=== PATIENT | female | born 1990 | race Asian ===

== ENCOUNTER 2018-05-27 20:40 | Emergency (ER) | payer BC ==
[2018-05-27] MEDS ORDERED: OXYCODONE-ACETAMINOPHEN 5-325 MG TABLET PO ONE (20:57)
--- NOTE | 2018-05-27 20:57 | ER Document Report ---
ED Medical Screen (RME) - General Chief Complaint: Abdominal Pain Stated Complaint: BACK PAIN Time Seen by Provider: 05/27/18 20:56 Notes: 28-year-old female to the emergency department complaining of lower pelvic pain mostly on the left side. States that she was at [facility] yesterday and diagnosed with a hemorrhagic ovarian cyst. Received a shot of Toradol but states that nothing they have given her has helped her pain. Came here to get something "stronger for the pain". States that she has had hemorrhagic ovarian cyst in the past which required surgery. Patient was told that the cyst was 2 cm. Was told to "come back to the ER if it ruptures". Patient is not sure how she is supposed to know when it ruptures? I have greeted and performed a rapid initial assessment of this patient. A comprehensive ED assessment and evaluation of the patient, analysis of test results and completion of the medical decision making process will be conducted by additional ED providers. Physical Exam - Vital signs Vitals: Temp Pulse Resp BP Pulse Ox 98.4 F 87 18 121/81 99 05/27/18 20:45 05/27/18 20:45 05/27/18 20:45 05/27/18 20:45 05/27/18 20:45 Course - Vital Signs Vital signs: Temp Pulse Resp BP Pulse Ox 98.4 F 87 18 121/81 99 05/27/18 20:45 05/27/18 20:45 05/27/18 20:45 05/27/18 20:45 05/27/18 20:45
[2018-05-27] MEDS ORDERED: KETOROLAC TROMETHAMINE INJ/PF 30 MG/1 ML SDV IV ONE (21:31)
[2018-05-27] MEDS ORDERED: NORMAL SALINE 1000 ML 1,000 ML IV ONE (21:31)
[2018-05-27] MEDS ORDERED: MORPHINE SULFATE 10 MG/ML INJ IV ONE (21:31)
[2018-05-27] MEDS ORDERED: ONDANSETRON HCL INJ/PF 4 MG/2 ML SDV IV ONE (21:31)
[2018-05-27 21:32] LABS: APPEARANCE,URINE CLEAR; BILIRUBIN,URINE NEGATIVE (NEGATIVE); COLOR,URINE YELLOW; GLUCOSE, URINE NEGATIVE (NEGATIVE); KETONES,URINE NEGATIVE (NEGATIVE); LEUKOCYTE ESTERASE,URINE NEGATIVE (NEGATIVE); NITRITE,URINE NEGATIVE (NEGATIVE); PROTEIN,URINE NEGATIVE (NEGATIVE); URINE SPECIFIC GRAVITY 1.012; UROBILINOGEN,URINE NEGATIVE mg/dL (<2.0)
--- NOTE | 2018-05-27 21:34 | ER Document Report ---
ED GI/ - General Chief Complaint: Abdominal Pain Stated Complaint: BACK PAIN Time Seen by Provider: 05/27/18 20:56 Notes: Patient is a 28-year-old female comes emergency department for chief complaint of abdominal pain, nausea, and flank pain. She states she was seen at [place] emergency department yesterday and had an ultrasound transvaginally which showed a 2 cm ovarian cyst, she does have some vaginal bleeding, she states she was told that she has a hemorrhagic cyst and she was given a shot of Toradol but her pain is persistent. She states for the past week she has barely been able to eat anything because eating makes her very nauseated, she states she is losing weight because of this. She denies fever or chills. She is currently on her menstrual cycle, denies vaginal discharge, denies dysuria. She has had an appendectomy, she has had an ovarian cyst removed in the past, she has not had any ovaries removed or hysterectomy, she denies any daily medications other than citalopram. Drinks alcohol socially, denies smoking or recreational drugs. - Related Data Allergies/Adverse Reactions: Sulfa (Sulfonamide Antibiotics) Allergy (Verified 05/27/18 20:57) Past Medical History - General Information source: Patient - Social History Smoking Status: Never Smoker Frequency of alcohol use: None Drug Abuse: None Lives with: Family Family History: Reviewed & Not Pertinent Patient has suicidal ideation: No Patient has homicidal ideation: No Renal/ Medical History: Reports: Hx Ovarian Cysts. Denies: Hx Peritoneal Dialysis Psychiatric Medical History: Reports: Hx Depression Surgical Hx: Negative - Immunizations Immunizations up to date: Yes Hx Diphtheria, Pertussis, Tetanus Vaccination: Yes Review of Systems - Review of Systems Constitutional: No symptoms reported EENT: No symptoms reported Cardiovascular: No symptoms reported Respiratory: No symptoms reported Gastrointestinal: See HPI Genitourinary: See HPI Female Genitourinary: See HPI Musculoskeletal: No symptoms reported Skin: No symptoms reported Hematologic/Lymphatic: No symptoms reported Neurological/Psychological: No symptoms reported Physical Exam - Vital signs Vitals: Temp Pulse Resp BP Pulse Ox 98.4 F 87 18 121/81 99 05/27/18 20:45 05/27/18 20:45 05/27/18 20:45 05/27/18 20:45 05/27/18 20:45 - Notes Notes: GENERAL: Alert, interacts well. No acute distress. HEAD: Normocephalic, atraumatic. EYES: Pupils equal, round, and reactive to light. Extraocular movements intact. ENT: Oral mucosa moist, tongue midline. NECK: Full range of motion. Supple. Trachea midline. LUNGS: Clear to auscultation bilaterally, no wheezes, rales, or rhonchi. No respiratory distress. HEART: Regular rate and rhythm. No murmur ABDOMEN: Generalized mild upper abdominal tenderness and lower abdominal tenderness without any particular guarding, no rebound tenderness, no rigidity EXTREMITIES: Moves all 4 extremities spontaneously. No edema, normal radial and dorsalis pedis pulses bilaterally. No cyanosis. BACK: no cervical, thoracic, lumbar midline tenderness. No saddle anesthesia, normal distal neurovascular exam. NEUROLOGICAL: Alert and oriented x3. Normal speech. [cranial nerves II through XII grossly intact]. PSYCH: Normal affect, normal mood. SKIN: Warm, dry, normal turgor. No rashes or lesions noted. Course - Re-evaluation Re-evalutation: Patient asymptomatic after medications and IV fluids. Alert and well- appearing. Tolerates p.o. without any difficulty. She has some upper abdominal tenderness and some lower abdominal tenderness without any areas of particular guarding. No CVA tenderness. CBC, chemistry, lipase, urinalysis unremarkable. Ultrasound today with no acute findings. She has already had an ultrasound yesterday, tells me she had a 2 cm hemorrhagic cyst. Patient was not provided with pain medications for this previously, she was provided with this to go home tonight, discussed follow-up, return precautions, patient states satisfaction and agreement. - Vital Signs Vital signs: Temp Pulse Resp BP Pulse Ox 98.2 F 85 16 130/76 H 100 05/28/18 00:00 05/28/18 00:00 05/28/18 00:00 05/28/18 00:00 05/28/18 00:00 - Laboratory Result Diagrams: 05/27/18 22:10 05/27/18 22:10 Laboratory results interpreted by me: 05/27/18 21:05 Urine Blood SMALL H Urine Ascorbic Acid 40 H Discharge - Discharge Clinical Impression: Abdominal pain Qualifiers: Abdominal location: generalized Qualified Code(s): R10.84 - Generalized abdominal pain Condition: Stable Disposition: HOME, SELF-CARE Additional Instructions: In regards to the upper abdominal pain and nausea with eating, your ultrasound is normal, your lab work does not show any concerning a normality, I suspect inflammation of the upper gastrointestinal tract (gastritis). Take the Nexium as prescribed for this. You can take [id number] Pepcid, Rolaids, etc. for this as well. Take Zofran for nausea. Avoid NSAIDs, caffeine, spicy foods , alcohol, smoking. Follow-up with primary care for additional evaluation of this. In regards to the previously diagnosed hemorrhagic cyst, take pain medication as prescribed if needed, follow-up with the [facility] referral. Return if you worsen including vomiting, severe pain, fever 100.4 greater, black stools, passing out, or any other concerning symptoms. Prescriptions: Morphine Sulfate [Morphine Ir 15 Mg Tablet] 15 mg PO Q4HP PRN #15 tablet PRN Reason: Esomeprazole Mag Trihydrate [Nexium] 40 mg PO DAILY #30 capsule. Ondansetron [Zofran Odt 4 mg Tablet] 1 - 2 tab PO Q4H PRN #15 tab.rapdis PRN Reason: For Nausea/Vomiting Referrals: [facility] [Provider Group] - Follow up as needed
--- NOTE | 2018-05-27 22:49 | RADIOLOGY REPORT (SQ) ---
EXAM DESCRIPTION: US ABDOMEN LIMITED COMPLETED DATE/TME: 05/27/2018 21:32 CLINICAL HISTORY: 28 years Female, RUQ and epigastric pain, nausea Comparison: None. LIMITATIONS: None. FINDINGS: Gallbladder, negative sonographic Goncalves's test, liver, a 0.2-cm diameter common bile duct, no intrahepatic ductal dilation, 11-cm right kidney, pancreas, visualized vasculature/abdominal aorta, and no significant ascites appear otherwise unremarkable. IMPRESSION: Normal RUQ-Abdominal Sonogram.
[2018-05-27 23:08] LABS: ABSOLUTE EOSINOPHILS # (AUTO) 0.2 10^3/uL (0.0-0.6); ABSOLUTE MONOCYTES (AUTO) 0.3 10^3/uL (0.1-1.4); ABSOLUTE NEUT (AUTO) 2.7 10^3/uL (1.7-8.2); BASOPHILS % (AUTO) 0.8 % (0-2); EOSINOPHILS % (AUTO) 3.1 % (0-6); HEMATOCRIT 38.3 % (36.0-47.0); HEMOGLOBIN 12.7 g/dL (12.0-15.5); LYMPHOCYTES % (AUTO) 38.7 % (13-45); MEAN CORPUSCULAR HEMOGLOBIN 27.3 pg (27.0-33.4); MEAN CORPUSCULAR HGB CONC 33.2 g/dL (32.0-36.0); MEAN CORPUSCULAR VOLUME 82 fl (80-97); MONOCYTES % (AUTO) 5.3 % (3-13); PLATELET COUNT 238 10^3/uL (150-450); RED BLOOD COUNT 4.66 10^6/uL (3.72-5.28); RED CELL DISTRIBUTION WIDTH 11.8 % (11.5-14.0); SEGMENTED NEUTROPHILS % (AUTO) 52.1 % (42-78); TOTAL CELLS COUNTED % (AUTO) 100 %; WHITE BLOOD COUNT 5.2 10^3/uL (4.0-10.5)
[2018-05-27 23:16] LABS: ALANINE AMINOTRANSFERASE 26 U/L (9-52); ALBUMIN 3.9 g/dL (3.5-5.0); ALKALINE PHOSPHATASE 73 U/L (38-126); ANION GAP 12 (5-19); ASPARTATE AMINO TRANSFERASE 22 U/L (14-36); BILIRUBIN,DIRECT 0.1 mg/dL (0.0-0.4); BILIRUBIN,TOTAL 0.3 mg/dL (0.2-1.3); BLOOD UREA NITROGEN 11 mg/dL (7-20); CARBON DIOXIDE 25 mmol/L (22-30); CHLORIDE 105 mmol/L (98-107); GLUCOSE 81 mg/dL (75-110); LIPASE 86.4 U/L (23-300); POTASSIUM 4.4 mmol/L (3.6-5.0); SODIUM 142.3 mmol/L (137-145); TOTAL PROTEIN 6.8 g/dL (6.3-8.2)
[2018-05-27] MEDS ORDERED: ONDANSETRON ODT 4 MG TAB (6 TAB/ER DISP) PO PRN (23:40)
[2018-05-27] MEDS ORDERED: HYDROCODONE/ACETAMINOPHEN 5-325 MG (6 TAB/ER DISP) PO PRN (23:40)
[2018-05-28 00:20] VITALS: BP 130/76
== END 2018-05-27 23:56 | disposition home or self-care (01) ==
LOC: ER 20:40
DX: R10.84 Generalized abdominal pain (principal); N83.209 Unspecified ovarian cyst, unspecified side; R11.0 Nausea; Z90.49 Acquired absence of other specified parts of digestive tract; Z88.2 Allergy status to sulfonamides
CPT/HCPCS: 99284; 96361; 96374; 96375; 36415; 83690; 85025; 81025; 80053; 81001; 76705; J1885; J2270; J2405; J7030

== ENCOUNTER 2019-04-22 17:02 | Emergency (ER) | payer OTHER, BC ==
[2019-04-22] MEDS ORDERED: ONDANSETRON 4 MG TAB.RAPDIS PO ONE (17:15)
--- NOTE | 2019-04-22 17:16 | ER Document Report ---
ED Medical Screen (RME) - General Chief Complaint: Back Pain Stated Complaint: BACK PAIN Time Seen by Provider: 04/22/19 17:10 Primary Care Provider: ESPINOZA FAROOQ NP [Primary Care Provider] - Follow up as needed Mode of Arrival: Ambulatory Information source: Patient Notes: Patient presents emergency department with complaints of bilateral flank pain abdominal pain nausea. Patient reports symptoms for the past day and half. Reports her stomach felt very bloated so she took some Gas-X and it did not really help. Patient does have history of recent kidney infection she finished her antibiotics. She also has a history of pancreatitis. She denies pain with void denies vaginal discharge. I have greeted and performed a rapid initial assessment of this patient. A comprehensive ED assessment and evaluation of the patient, analysis of test results and completion of the medical decision making process will be conducted by additional ED providers. Dictation of this chart was performed using voice recognition software; therefore, there may be some unintended grammatical errors. TRAVEL OUTSIDE OF THE [place] IN LAST 30 DAYS: No - Related Data Allergies/Adverse Reactions: Sulfa (Sulfonamide Antibiotics) Allergy (Verified 05/27/18 20:57) Past Medical History Renal/ Medical History: Reports: Hx Ovarian Cysts. Denies: Hx Peritoneal Dialysis Psychiatric Medical History: Reports: Hx Depression - Immunizations Immunizations up to date: Yes Hx Diphtheria, Pertussis, Tetanus Vaccination: Yes Physical Exam - Vital signs Vitals: Temp Pulse Resp BP Pulse Ox 98.4 F 115 H 18 102/81 96 04/22/19 17:07 04/22/19 17:07 04/22/19 17:07 04/22/19 17:07 04/22/19 17:07 Course - Vital Signs Vital signs: Temp Pulse Resp BP Pulse Ox 98.4 F 115 H 18 102/81 96 04/22/19 17:07 04/22/19 17:07 04/22/19 17:07 04/22/19 17:07 04/22/19 17:07 Doctor's Discharge - Discharge Referrals: ESPINOZA FAROOQ NP [Primary Care Provider] - Follow up as needed
[2019-04-22 17:47] LABS: ABSOLUTE LYMPHOCYTES (AUTO) 0.7 10^3/uL (0.5-4.7); ABSOLUTE MONOCYTES (AUTO) 0.3 10^3/uL (0.1-1.4); ABSOLUTE NEUT (AUTO) 4.5 10^3/uL (1.7-8.2); BASOPHILS % (AUTO) 0.4 % (0-2); EOSINOPHILS % (AUTO) 0.4 % (0-6); HEMATOCRIT 41.8 % (36.0-47.0); HEMOGLOBIN 13.8 g/dL (12.0-15.5); LYMPHOCYTES % (AUTO) 13.2 % (13-45); MEAN CORPUSCULAR HEMOGLOBIN 26.9 pg (27.0-33.4); MEAN CORPUSCULAR HGB CONC 33.1 g/dL (32.0-36.0); MEAN CORPUSCULAR VOLUME 81 fl (80-97); MONOCYTES % (AUTO) 5.6 % (3-13); PLATELET COUNT 250 10^3/uL (150-450); RED BLOOD COUNT 5.15 10^6/uL (3.72-5.28); RED CELL DISTRIBUTION WIDTH 12.5 % (11.5-14.0); SEGMENTED NEUTROPHILS % (AUTO) 80.4 % (42-78); TOTAL CELLS COUNTED % (AUTO) 100 %; WHITE BLOOD COUNT 5.6 10^3/uL (4.0-10.5)
[2019-04-22 17:48] LABS: APPEARANCE,URINE CLEAR; BILIRUBIN,URINE NEGATIVE (NEGATIVE); COLOR,URINE YELLOW; GLUCOSE, URINE NEGATIVE (NEGATIVE); KETONES,URINE NEGATIVE (NEGATIVE); LEUKOCYTE ESTERASE,URINE NEGATIVE (NEGATIVE); NITRITE,URINE NEGATIVE (NEGATIVE); PROTEIN,URINE NEGATIVE (NEGATIVE); URINE SPECIFIC GRAVITY 1.027; UROBILINOGEN,URINE NEGATIVE mg/dL (<2.0)
[2019-04-22 18:06] LABS: ALANINE AMINOTRANSFERASE 28 U/L (9-52); ALBUMIN 4.6 g/dL (3.5-5.0); ALKALINE PHOSPHATASE 83 U/L (38-126); AMYLASE 120 U/L (30-110); ANION GAP 9 (5-19); ASPARTATE AMINO TRANSFERASE 28 U/L (14-36); BILIRUBIN,DIRECT 0.2 mg/dL (0.0-0.4); BILIRUBIN,TOTAL 0.4 mg/dL (0.2-1.3); BLOOD UREA NITROGEN 10 mg/dL (7-20); CALCIUM 9.2 mg/dL (8.4-10.2); CARBON DIOXIDE 26 mmol/L (22-30); CHLORIDE 103 mmol/L (98-107); GLUCOSE 105 mg/dL (75-110); LIPASE 65.8 U/L (23-300); POTASSIUM 3.6 mmol/L (3.6-5.0); SODIUM 137.6 mmol/L (137-145); TOTAL PROTEIN 7.9 g/dL (6.3-8.2)
[2019-04-22] MEDS ORDERED: RINGERS SOLUTION,LACTATED 1,000 ML IV ONE (19:14)
[2019-04-22] MEDS ORDERED: KETOROLAC TROMETHAMINE INJ/PF 30 MG/1 ML SDV IV ONE (19:14)
[2019-04-22] MEDS ORDERED: DICYCLOMINE HCL INJ 20 MG/2 ML AMPULE IM ONE (19:15)
--- NOTE | 2019-04-22 19:20 | ER Document Report ---
ED General - General Chief Complaint: Back Pain Stated Complaint: BACK PAIN Time Seen by Provider: 04/22/19 17:10 Primary Care Provider: ESPINOZA FAROOQ NP [NO LOCAL MD] - Follow up as needed Mode of Arrival: Ambulatory Notes: Patient is a 29-year-old female without chronic medical problems beyond depression, anxiety, PTSD, past surgical history of an appendectomy and a hematoma removal after ruptured ovarian cyst who presents with concerns of 36 hours of fatigue, diffuse low back pain as well as generalized abdominal cramping. States that her symptoms started gradually, have been relatively unchanged since onset. No exacerbating or alleviating factors. Is not trying to improve her symptoms. Denies a history of similar symptoms in the past. Pain to her back and abdomen is described as a cramping, mild, constant discomfort. She has not seen her primary care physician regarding today's concerns. Denies fever, diarrhea, states that she is been nauseated and has "vomited up in my mouth". Denies vaginal bleeding, vaginal discharge or dysuria. Believes she may have overexerted herself yesterday. TRAVEL OUTSIDE OF THE [place] IN LAST 30 DAYS: No - Related Data Allergies/Adverse Reactions: Sulfa (Sulfonamide Antibiotics) Allergy (Verified 05/27/18 20:57) Past Medical History - General Information source: Patient - Social History Smoking Status: Never Smoker Frequency of alcohol use: None Drug Abuse: None Lives with: Spouse/Significant other Family History: Reviewed & Not Pertinent Patient has suicidal ideation: No Patient has homicidal ideation: No Renal/ Medical History: Reports: Hx Ovarian Cysts. Denies: Hx Peritoneal Dialysis Psychiatric Medical History: Reports: Hx Depression - Immunizations Immunizations up to date: Yes Hx Diphtheria, Pertussis, Tetanus Vaccination: Yes Review of Systems - Review of Systems Notes: Constitutional: Negative for fever. Positive for fatigue HENT: Negative for sore throat. Eyes: Negative for visual changes. Cardiovascular: Negative for chest pain. Respiratory: Negative for shortness of breath. Gastrointestinal: Positive for abdominal cramping Genitourinary: Negative for dysuria. Musculoskeletal: Positive for low back pain Skin: Negative for rash. Neurological: Negative for headaches, weakness or numbness. 10 point ROS negative except as marked above and in HPI. Physical Exam - Vital signs Vitals: Temp Pulse Resp BP Pulse Ox 98.4 F 115 H 18 102/81 96 06/30/19 17:07 04/22/19 17:07 04/22/19 17:07 04/22/19 17:07 04/22/19 17:07 Interpretation: Tachycardic - Resolved at the time of my assessment, heart rate 72 on manual count at bedside Notes: PHYSICAL EXAMINATION: GENERAL: Well-appearing, well-nourished and in no acute distress. HEAD: Atraumatic, normocephalic. EYES: Pupils equal round and reactive to light, extraocular movements intact, sclera anicteric, conjunctiva are normal. ENT: nares patent, oropharynx clear without exudates. Moderately dry mucous membranes. NECK: Normal range of motion, supple without lymphadenopathy LUNGS: Breath sounds clear to auscultation bilaterally and equal. No wheezes rales or rhonchi. HEART: Regular rate and rhythm without murmurs ABDOMEN: Soft, nontender, normoactive bowel sounds. No guarding, no rebound. No masses appreciated. EXTREMITIES: Normal range of motion, no pitting or edema. No cyanosis. Back: No midline spinal tenderness, step-offs or deformities. NEUROLOGICAL: 5 out of 5 strength both distally and proximally bilateral lower extremities. 2+ patellar reflexes bilaterally. No clonus. Sensation grossly intact in the bilateral lower extremities. Patient is able to ambulate without difficulty. PSYCH: Normal mood, normal affect. SKIN: Warm, Dry, normal turgor, no rashes or lesions noted. Course - Re-evaluation Re-evalutation: 04/22/19 19:19 Patient presents with multiple complaints that did not appear to be concerning for any acute life-threatening pathology. Vitals are within normal limits at the time of my assessment. Physical examination is unremarkable she has no focal abdominal tenderness and no red flag signs in regards to low back pain. Patient has tolerated oral intake without difficulty. Patient was not noted to be in distress at any point during their ER visit. Very low clinical suspicion for acute surgical or life-threatening pathology at this time based on reassuring evaluation. Labs broadly unremarkable. Patient has had clinical improvement after receiving IV fluids, antiemetics, analgesia. Have advised that there is diagnostic uncertainty regarding the cause of her presentation today and have thoroughly emphasized the need to have a low threshold to return to the emergency department due to the degree of diagnostic uncertainty. Do not believe CT imaging the abdomen pelvis to be appropriate this point given absence of any focal abdominal tenderness on exam. Will discharge with return precautions and follow-up recommendations. Verbal discharge instructions given a the bedside and opportunity for questions given. Medication warnings reviewed. Patient is in agreement with this plan and has verbalized understanding of return precautions and the need for primary care follow-up in the next 24-72 hours. - Vital Signs Vital signs: Temp Pulse Resp BP Pulse Ox 98.4 F 115 H 18 102/81 96 04/22/19 17:07 04/22/19 17:07 04/22/19 17:07 04/22/19 17:07 04/22/19 17:07 - Laboratory Result Diagrams: 04/22/19 17:12 04/22/19 17:12 Laboratory results interpreted by me: 04/22/19 04/22/19 04/22/19 17:12 17:12 17:12 MCH 26.9 L Seg Neutrophils % 80.4 H Amylase 120 H Urine Ascorbic Acid 40 H Discharge - Discharge Clinical Impression: Abdominal cramping Low back pain Qualifiers: Chronicity: acute Back pain laterality: bilateral Sciatica presence: without sciatica Qualified Code(s): M54.5 - Low back pain Fatigue Qualifiers: Fatigue type: unspecified Qualified Code(s): R53.83 - Other fatigue Disposition: HOME, SELF-CARE Additional Instructions: The exact cause your symptoms is uncertain but does not appear to be from a life-threatening cause today based on your reassuring evaluation including labs, exam and vital signs. However as we discussed given the uncertainty of what is causing your symptoms you need to have a very low threshold to return to the emergency department for any new or worsening symptoms. Specifically if you develop worsening abdominal pain, difficulty walking, persistent vomiting, fever greater than 100.4 F, pass out, or have any other worsening symptoms need to return immediately. Please follow-up with your primary care physician within the next 24 to 48 hours. Referrals: ESPINOZA FAROOQ NP [NO LOCAL MD] - Follow up in 3-5 days
[2019-04-22 20:41] VITALS: BP 113/74
== END 2019-04-22 20:41 | disposition home or self-care (01) ==
LOC: ER 17:02
DX: M54.5 Low back pain (principal); R10.84 Generalized abdominal pain; R53.83 Other fatigue; R11.2 Nausea with vomiting, unspecified; Z90.49 Acquired absence of other specified parts of digestive tract; Z87.42 Personal history of other diseases of the female genital tract; Z88.2 Allergy status to sulfonamides
CPT/HCPCS: 99283; 96361; 96374; 96375; 36415; 82150; 83690; 85025; 80053; 81001; J0500; S0119; J1885; J7120

== ENCOUNTER 2020-11-09 07:20 | Emergency (ER) | payer OTHER, BC ==
[2020-11-09 08:14] LABS: ABSOLUTE LYMPHOCYTES (AUTO) 1.6 10^3/uL (0.5-4.7); ABSOLUTE MONOCYTES (AUTO) 0.4 10^3/uL (0.1-1.4); BASOPHILS % (AUTO) 0.4 % (0-2); EOSINOPHILS % (AUTO) 0.1 % (0-6); HEMATOCRIT 39.8 % (36.0-47.0); HEMOGLOBIN 13.4 g/dL (12.0-15.5); LYMPHOCYTES % (AUTO) 15.6 % (13-45); MEAN CORPUSCULAR HEMOGLOBIN 27.5 pg (27.0-33.4); MEAN CORPUSCULAR HGB CONC 33.7 g/dL (32.0-36.0); MEAN CORPUSCULAR VOLUME 82 fl (80-97); MONOCYTES % (AUTO) 3.5 % (3-13); PLATELET COUNT 274 10^3/uL (150-450); RED BLOOD COUNT 4.87 10^6/uL (3.72-5.28); RED CELL DISTRIBUTION WIDTH 12.4 % (11.5-14.0); SEGMENTED NEUTROPHILS % (AUTO) 80.4 % (42-78); TOTAL CELLS COUNTED % (AUTO) 100 %
[2020-11-09 08:25] LABS: ALBUMIN 4.7 g/dL (3.5-5.0); ALKALINE PHOSPHATASE 85 U/L (38-126); ANION GAP 8 (5-19); ASPARTATE AMINO TRANSFERASE 39 U/L (14-36); BILIRUBIN,DIRECT 0.1 mg/dL (0.0-0.4); BILIRUBIN,TOTAL 0.5 mg/dL (0.2-1.3); BLOOD UREA NITROGEN 14 mg/dL (7-20); CALCIUM 9.5 mg/dL (8.4-10.2); CARBON DIOXIDE 26 mmol/L (22-30); CHLORIDE 103 mmol/L (98-107); GLUCOSE 112 mg/dL (75-110); POTASSIUM 3.9 mmol/L (3.6-5.0); TOTAL PROTEIN 8.3 g/dL (6.3-8.2)
[2020-11-09] MEDS ORDERED: TAMSULOSIN HCL 0.4 MG CAP.SR.24H PO ONE (08:52)
[2020-11-09] MEDS ORDERED: MORPHINE SULFATE 10 MG/ML INJ IV PRN (08:52)
[2020-11-09] MEDS ORDERED: DICYCLOMINE HCL INJ 20 MG/2 ML AMPULE IM ONE (08:54)
[2020-11-09] MEDS ORDERED: NORMAL SALINE 1000 ML 1,000 ML IV ONE (08:54)
[2020-11-09] MEDS ORDERED: ONDANSETRON HCL INJ/PF 4 MG/2 ML SDV IV ONE (08:55)
--- NOTE | 2020-11-09 09:11 | ER Document Report ---
ED General - General Stated Complaint: DIARRHEA, VOMITING Time Seen by Provider: 11/09/20 08:17 Primary Care Provider: LALA,WENDY [Primary Care Provider] - Follow up as needed TRAVEL OUTSIDE OF THE [place] IN LAST 30 DAYS: No - HPI Notes: 30-year-old female presents to ED for evaluation of diffuse abdominal pain with nausea, vomiting, and diarrhea. Notes that she started with constipation and has progressed to loose stools with blood. Notes that she has no focal area of pain but instead has pain throughout. Denies urinary complaints but does endorse flank pain. Patient states that she did start a probiotic yesterday. Notes that she has not taken any medications to alleviate her symptoms. Denies chest pain, palpitations, SOB. Patient denies recent sick contacts. - Related Data Allergies/Adverse Reactions: Sulfa (Sulfonamide Antibiotics) Allergy (Verified 05/27/18 20:57) Past Medical History - Social History Smoking Status: Never Smoker Family History: Reviewed & Not Pertinent - Medical History Medical History: Negative Renal/ Medical History: Reports: Hx Ovarian Cysts. Denies: Hx Peritoneal Dialysis Psychiatric Medical History: Reports: Hx Depression - Immunizations Immunizations up to date: Yes Hx Diphtheria, Pertussis, Tetanus Vaccination: Yes Review of Systems - Review of Systems Notes: Constitutional: Negative for fever. HENT: Negative for sore throat. Eyes: Negative for visual changes. Cardiovascular: Negative for chest pain. Respiratory: Negative for shortness of breath. Gastrointestinal: + for abdominal pain, +vomiting + diarrhea. Genitourinary: Negative for dysuria. Musculoskeletal: + for back pain. Skin: Negative for rash. Neurological: Negative for headaches, weakness or numbness. 10 point ROS negative except as marked above and in HPI. Physical Exam - Vital signs Vitals: Temp Pulse Resp BP Pulse Ox 98.3 F 100 16 114/83 96 11/09/20 07:29 11/09/20 07:29 11/09/20 07:29 11/09/20 07:29 11/09/20 07:29 General: No acute distress. Alert and oriented x3. Sitting comfortably in a stretcher. Skin: No jaundice, pallor, petechiae, or rashes. Warm and dry. HEENT: Normocephalic, atraumatic. Pupils are equal round reactive to light and accommodation. Extraocular movements are intact. TMs without erythema or bulging. Canals are clear. Nares patent without any discharge. Teeth in good condition. Pharynx without erythema, edema, or exudates. Mucous membranes moist. No tonsillar enlargement. Uvula is midline. Airway is patent. Neck: Supple with no lymphadenopathy. Full range of motion. Heart: Regular rate and rhythm. S1,S2. No murmurs, rubs, or gallops. Lungs: Clear to auscultation bilaterally. No wheezes, rhonchi, rales. Equal chest expansion. No retractions. Abdomen: Soft, pain with deep palpation throughout abdomen, nondistended. No rebound or guarding. Positive bowel sounds in all 4 quadrants. No masses. No CVA tenderness bilaterally. Back: No midline spinal TTP. Bilateral paraspinous muscular TTP in lumbar region. Neuro: GCS 15. Moving all extremities without discomfort. Psych: Mood and affect appropriate. Course - Re-evaluation Re-evalutation: 11/09/20 11:59 30-year-old female to ED for evaluation of nausea, vomiting, and diarrhea. Patient reports that she started with the symptoms yesterday. Patient does report some blood in her stool. On exam, patient is well-appearing. She has diffuse tenderness throughout the abdominal region. Patient was evaluated with labs which do show no leukocytosis. Patient has mild hyponatremia as well as a mildly elevated AST and ALT. I do not have priors for comparison. Patient has no focal right upper quadrant abdominal tenderness on exam. There is no epigastric tenderness. Patient was further evaluated with urinalysis which is notable for protein as well as ketones concerning for dehydration. Patient was given fluids, antiemetics, antispasmodics, and NSAID medications with improvement. Patient was advised to continue clear fluids for today and advance her diet as tolerated. I do not believe that patient requires imaging due to the benign nature of her discomfort. She did feel improved upon reevaluation. She understands indications to return to the ED. Understands her course of management and is agreeable with care plan. - Vital Signs Vital signs: Temp Pulse Resp BP Pulse Ox 98.3 F 100 16 114/83 96 11/09/20 07:29 11/09/20 07:29 11/09/20 07:29 11/09/20 07:29 11/09/20 07:29 - Laboratory Results Result Diagrams: 11/09/20 07:54 11/09/20 07:54 Laboratory Results Interpreted: 11/09/20 11/09/20 11/09/20 07:54 07:54 08:53 Seg Neutrophils % 80.4 H Sodium 136.5 L Glucose 112 H AST 39 H ALT 43 H Total Protein 8.3 H Urine Protein 30 H Urine Ketones 80 H Urine Ascorbic Acid 40 H Critical Laboratory Results Reviewed: No Critical Results - Radiology Results Critical Radiology Results Reviewed: No Critical Results Discharge - Discharge Clinical Impression: Nausea vomiting and diarrhea Condition: Stable Disposition: HOME, SELF-CARE Instructions: Abdominal Pain ([facility]), Prescribed Antidiarrhea Medications ([facility]), Antispasmodics ([facility]), Antinausea Medication ([facility]), Viral Syndrome ([facility]) Additional Instructions: Please use clear liquids for today and advance diet as tolerated. Use bland foods tomorrow (BRAT diet). Follow up with PCP for any new or worsening symptoms. Prescriptions: Dicyclomine HCl [Bentyl 20 mg Tablet] 20 mg PO TID #18 tablet Naproxen [Naprosyn 250 mg Tablet] 250 mg PO BID #30 tablet Ondansetron [Zofran Odt 4 mg Tablet] 1 - 2 tab PO Q4H PRN #15 tab.rapdis PRN Reason: For Nausea/Vomiting [facility]errals: [facility] [Primary [facility] - Follow up as needed
[2020-11-09 09:19] LABS: APPEARANCE,URINE SLIGHTLY-CLOUDY; BILIRUBIN,URINE NEGATIVE (NEGATIVE); COLOR,URINE YELLOW; GLUCOSE, URINE NEGATIVE (NEGATIVE); KETONES,URINE 80 mg/dL (NEGATIVE); LEUKOCYTE ESTERASE,URINE NEGATIVE (NEGATIVE); NITRITE,URINE NEGATIVE (NEGATIVE); PROTEIN,URINE 30 mg/dL (NEGATIVE); UROBILINOGEN,URINE NEGATIVE mg/dL (<2.0)
[2020-11-09] MEDS ORDERED: KETOROLAC TROMETHAMINE INJ/PF 30 MG/1 ML SDV IV ONE (10:29)
[2020-11-09 10:47] VITALS: BP 106/72
== END 2020-11-09 10:47 | disposition home or self-care (01) ==
LOC: ER 07:20
DX: R10.84 Generalized abdominal pain (principal); R10.817 Generalized abdominal tenderness; R11.2 Nausea with vomiting, unspecified; R19.7 Diarrhea, unspecified; K92.1 Melena; E87.1 Hypo-osmolality and hyponatremia; R74.01 Elevation of levels of liver transaminase levels; M54.9 Dorsalgia, unspecified; Z87.42 Personal history of other diseases of the female genital tract; Z88.2 Allergy status to sulfonamides
CPT/HCPCS: 99284; 96372; 96361; 96374; 96375; 36415; 85025; 81025; 80053; 81001; J0500; J1885; J2405; J7030